=== PATIENT | male | born 1965 | race Caucasian/White ===

== ENCOUNTER 2023-03-27 20:02 | Emergency (ER) | payer SELFPAY ==
[~2023-03-27] VITALS: Ht 188 cm; Wt 117.9 kg
[2023-03-27] MEDS ORDERED: NEXIUM40 M1 PO (20:21)
[2023-03-27] MEDS ORDERED: AMLODIPINE BESYL5 MG PO (20:22)
[2023-03-27] MEDS ORDERED: TYLENOL # 31 TA1 PO (20:34)
[2023-03-27] MEDS ORDERED: CLINDAMYCIN300 M1 PO (20:34)
[2023-03-27] MEDS ORDERED: NAPROXEN375 MG PO (20:34)
[2023-03-27 21:16] VITALS: BP 142/94
== END 2023-03-27 21:16 | disposition home or self-care (01) | DRG 159 ==
LOC: ED 20:02
DX: K02.9 Dental caries, unspecified (principal); K04.7 Periapical abscess without sinus; I10 Essential (primary) hypertension; K21.9 Gastro-esophageal reflux disease without esophagitis